=== PATIENT | female | born 2000 | race Hispanic/Latino ===

== ENCOUNTER 2019-03-01 20:04 | Inpatient (IN) | payer OTHER ==
[~2019-03-01] VITALS: Ht 160 cm; Wt 71.0 kg
[2019-03-01] MEDS ORDERED: LIDOCAINE HCL 2% VISCOUS 15 ML UDCUP ONE (20:11)
[2019-03-01] MEDS ORDERED: MAGNESIUM HYDROXIDE 30 ML/UDCUP ONE (20:11)
[2019-03-01 20:43] LABS: BASOPHILS % (AUTO) 0.5 % (0.0-5.0); EOSINOPHILS % (AUTO) 0.1 % (0.0-8.0); HEMATOCRIT 36.5 % (36-48); LYMPHOCYTES % (AUTO) 9.9 % (21.0-51.0); MEAN CORPUSCULAR HEMOGLOBIN 26.7 pg (27.0-33.0); MEAN CORPUSCULAR HGB CONC 33.3 g/dL (32.0-36.0); MEAN CORPUSCULAR VOLUME 80.1 fL (80-100); MONOCYTES % (AUTO) 5.6 % (3.0-13.0); NEUTROPHILS % (AUTO) 83.9 % (40.0-77.0); PLATELET COUNT (AUTO) 332 K/uL (130-400); RED BLOOD CELL COUNT(AUTO) 4.56 MIL/uL (4.00-5.50); RED CELL DISTRIBUTION WIDTH 15.9 % (11.0-15.5); WHITE BLOOD COUNT (AUTO) 10.8 K/uL (4.8-10.8)
[2019-03-01 20:53] LABS: CREATININE 0.7 mg/dL (0.5-1.5); POTASSIUM 3.8 mmol/L (3.5-5.1)
[2019-03-01 20:59] LABS: ALBUMIN 3.7 g/dL (3.5-5.0); BILIRUBIN,DIRECT 0.5 mg/dL (0.0-0.3); BILIRUBIN,TOTAL 0.9 mg/dL (0.2-1.0)
[2019-03-01] MEDS ORDERED: KETOROLAC TROMETHAMINE 30MG/ML ONE (21:26)
[2019-03-01] MEDS ORDERED: ONDANSETRON HCL 4 MG/2 ML VIAL ONE (21:26)
[2019-03-01 21:58] LABS: APPEARANCE,URINE TURBID (CLEAR); BILIRUBIN,URINE NEGATIVE (NEGATIVE); COLOR,URINE ORANGE (YELLOW); GLUCOSE, URINE (UA) NEGATIVE (NEGATIVE); KETONES,URINE NEGATIVE (NEGATIVE); LEUKOCYTE ESTERASE ,URINE TRACE (NEGATIVE); NITRATE,URINE NEGATIVE (NEGATIVE); OCCULT BLOOD,URINE LARGE (NEGATIVE); PH,URINE 8.5 (5.0-8.0); PROTEIN,URINE 100 mg/dL (NEGATIVE)
[2019-03-01 22:03] LABS: HCG,QUAL RESULT NEGATIVE (NEGATIVE)
[2019-03-01 22:11] LABS: BACTERIA,URINE Moderate /HPF (None Seen); RBC,URINE Full Field /HPF (0-1)
[2019-03-01 22:18] LABS: AMPHET/METH SCREEN,URINE NEGATIVE (NEGATIVE); BARBITURATE SCREEN, URINE NEGATIVE (NEGATIVE); BENZODIAZEPINES SCREEN,URINE NEGATIVE (NEGATIVE); CANNABINOID SCREEN,URINE POSITIVE (NEGATIVE); COCAINE SCREEN,URINE NEGATIVE (NEGATIVE); OPIATE SCREEN,URINE NEGATIVE (NEGATIVE); PHENCYCLIDINE SCREEN,URINE NEGATIVE (NEGATIVE)
[2019-03-02] MEDS ORDERED: KETOROLAC TROMETHAMINE 15MG/ML IV PRN (00:30)
[2019-03-02] MEDS ORDERED: ONDANSETRON HCL 4 MG/2 ML VIAL IV PRN (00:30)
[2019-03-02] MEDS ORDERED: MORPHINE SULFATE 2 MG/ML 1ML SYG IV PRN (00:30)
[2019-03-02] MEDS ORDERED: ACETAMINOPHEN 325 MG TAB PO PRN (00:30)
[2019-03-02 01:50] VITALS: BP 127/76
[2019-03-02] MEDS: ZOSYN 3.375GM+NS 50ML 50 ML IV SCH ×3 (02:04→17:24)
[2019-03-02] MEDS: SODIUM CHLORIDE 0.9% 1000ML 1,000 ML IV SCH ×3 (02:05→17:24)
[2019-03-02 04:00] VITALS: BP 113/50
[2019-03-02 08:00] VITALS: BP 149/65
[2019-03-02] MEDS ORDERED: ENOXAPARIN SODIUM 40 MG/0.4 ML SYRINGE SQ SCH (09:00)
[2019-03-02] MEDS: FAMOTIDINE/PF 20 MG/2 ML VIAL IV SCH ×2 (09:11→20:41)
[2019-03-02 11:45] VITALS: BP 117/73
--- NOTE | 2019-03-02 12:25 | NUR ---
CALL FROM DR. KRAMER'S OFFICE T/C FROM JAMIE WHO SAID HAD GIVEN INFO TO NEGAR AND DR. KRAMER BUT WAS INFORMED THEY ARE NOT FEATHER EDGER TODAY, IT IS DR. TAVERAS. JULIEN PRIMARY NOTIFIED.
[2019-03-02 16:00] VITALS: BP 128/77
[2019-03-02 19:35] VITALS: BP 136/67
--- NOTE | 2019-03-02 22:34 | NUR ---
DISCONNECTED PT IV AT 1930 BECAUSE SHE WANTED TO GO FOR A WALK. I INSTRUCTED THE PT TO NOTIFY ME WHEN SHE GOT BACK SO I COULD RESUME HER IV ANTIBIOTICS AND SHE AGREED. AT 2029 I WENT TO HER ROOM TO GIVE HER IV PEPCID BUT SHE WAS NOT THERE. I NOTIFIED SECURITY, BUT HE WAS UNABLE TO FIND HER IN THE LOBBY OR OUTSIDE. I CALLED THE GRANDFATHER POLA AND HE TOLD ME THAT THE PATIENT TOLD HER MOTHER SHE WAS DISCHARGED, BUT THE PT WAS NOT WITH HIM. I INSTRUCTED HIM TO TELL HER THAT IF THE IV IS STILL IN HER ARM SHE NEEDS TO GO TO THE ER TO GET IT REMOVED. I NOTIFIED [employer]ORCYCLE DELIVERY DRIVER SASCHA AND ALSO FABIENNE PAIZ.
== END 2019-03-02 21:35 | disposition left against medical advice (07) | DRG 445 ==
LOC: EDH 20:04 → EDHIP 20:05 → 4BH 03-02 01:37
PROVIDERS: ADMIT Internal Medicine; ATTEND Internal Medicine
DX: K80.20 Calculus of gallbladder without cholecystitis without obstruction (principal); N39.0 Urinary tract infection, site not specified; E66.9 Obesity, unspecified; F15.90 Other stimulant use, unspecified, uncomplicated; F17.210 Nicotine dependence, cigarettes, uncomplicated; K76.0 Fatty (change of) liver, not elsewhere classified; F12.90 Cannabis use, unspecified, uncomplicated; Z68.27 Body mass index [BMI] 27.0-27.9, adult
CPT/HCPCS: 36415; 76705; 80048; 80076; 80305; 81001; 81025; 83690; 85025; 87077; 87088; 87186; G0378; J1650; J1885; J2405; J2543; J3490; J7030